=== PATIENT | male | born 1980 | race African-American/Black ===

== ENCOUNTER 2021-09-08 13:19 | Emergency (ER) | payer BC, OTHER ==
[2021-09-08] MEDS ORDERED: Tetracaine 0.5% PF 4 ML BOT ONE (13:43)
[2021-09-08] MEDS ORDERED: Fluorescein Opthalmic Strip ONE (13:43)
== END 2021-09-08 15:00 | disposition home or self-care (01) ==
LOC: CSHERS 13:19
DX: H10.9 Unspecified conjunctivitis (principal); I10 Essential (primary) hypertension; Z77.098 Contact with and (suspected) exposure to other hazardous, chiefly nonmedicinal, chemicals
CPT/HCPCS: 99283